=== PATIENT | female | born 1990 | race Caucasian/White ===

== ENCOUNTER 2017-10-10 13:48 | Emergency (ER) | payer SELFPAY ==
[2017-10-10 16:08] LABS: Bilirubin Negative (Negative); Blood, Urine Negative (Negative); Clarity CLOUDY (Clear); Glucose, Urine (Dipstick) Negative (Negative); Leukocyte Small (Negative); Nitrite Negative (Negative); Protein, Urine (Dipstick) Trace mg/dL (Neg-Trace); Specific Gravity, Urine 1.031 (1.002-1.036)
[2017-10-10 16:11] LABS: Pregnancy Test - Urine (BHCG) POSITIVE (Negative); Pregu Control Background? CLEAR/WHITE (CLR/WHITE); Pregu Control Bar Appear? YES (CONTROL BAR); Specific Gravity 1.031 (1.002-1.036)
[2017-10-10 16:25] LABS: Bacteria/HPF 3+ HPF (None Seen); Hyaline Casts/LPF NONE SEEN LPF (0-3 Hyaline); RBC/HPF 0-3 HPF (0-3); Squamous Epithelial 0-3 HPF (0-3)
[2017-10-10 16:34] LABS: #Eosinphils 0.1 thou/uL (0.0-0.7); #Lymphocytes 1.8 thou/uL (1.20-3.40); #Monocytes 0.5 thou/uL (0.11-0.59); #Neutrophils 8.1 thou/uL (1.40-6.50); %Basophils 0.3 % (0.0-1.0); %Eosinophils 0.6 % (0.0-10.0); %Monocytes 5.1 % (0.0-10.0); %Neutrophils 77.1 % (42.0-75.0); Hemoglobin 11.9 g/dL (12.0-16.0); Mean Corpuscular HGB CONC 32.8 g/dL (32.0-36.0); Mean Corpuscular Hemoglobin 28.6 pg (27.0-31.0); Mean Corpuscular Volume 87.3 fl (81.0-99.0); Mean Platelet Volume 8.1 fL (7.4-10.4); Platelet Count 292 thou/uL (130-400); Red Blood Cell (RBC) Count 4.15 mill/uL (4.20-5.40); White Blood Cell (WBC) Count 10.5 thou/uL (4.8-10.8)
[2017-10-10 16:50] LABS: ALT (SGPT) 9 U/L (8-55); AST (SGOT) 12 U/L (5-34); Albumin 3.7 g/dL (3.5-5.0); Alkaline Phosphatase 73 U/L (40-150); Anion Gap 15 mmol/L (10-20); BUN (Urea Nitrogen) 5 mg/dL (7.0-18.7); Bilirubin, Total 0.8 mg/dL (0.2-1.2); Calc. Creatinine Clearance 0 mL/min (70-130); Calcium 8.6 mg/dL (7.8-10.44); Carbon Dioxide 20 mmol/L (22-29); Chloride 108 mmol/L (98-107); Estimated GFR-MDRD Greater than 90; Globulin 3.1 g/dL (2.4-3.5); Glucose 70 mg/dL (70-105); Potassium 3.7 mmol/L (3.5-5.1); Protein, Total 6.8 g/dL (6.0-8.3); Sodium 139 mmol/L (136-145)
== END 2017-10-10 17:00 | disposition home or self-care (01) ==
LOC: EDBD 13:48 → ERS 13:48
DX: O23.40 Unspecified infection of urinary tract in pregnancy, unspecified trimester (principal); O99.340 Other mental disorders complicating pregnancy, unspecified trimester; F41.9 Anxiety disorder, unspecified
CPT/HCPCS: 36415; 80053; 81003; 81015; 81025; 85025; 87086; 99283

== ENCOUNTER 2018-01-14 10:47 | Observation (INO) | payer OTHER, SELFPAY ==
[2018-01-14] MEDS ORDERED: Dextrose 50% Abboject 50 ML SYRINGE IVP PRN (11:26)
[2018-01-14] MEDS ORDERED: HumaLOG 300 UNITS/3 ML VIAL SC PRN (11:26)
[2018-01-14] MEDS ORDERED: Dextrose 5% in Water 1,000 ML IV PRN (11:26)
[2018-01-14 12:15] LABS: ALT (SGPT) 37 U/L (8-55); AST (SGOT) 19 U/L (5-34); Albumin 3.4 g/dL (3.5-5.0); Alkaline Phosphatase 161 U/L (40-150); Anion Gap 10 mmol/L (10-20); BUN (Urea Nitrogen) 8 mg/dL (7.0-18.7); Bilirubin, Total 0.8 mg/dL (0.2-1.2); Calc. Creatinine Clearance 0 mL/min (70-130); Calcium 8.3 mg/dL (7.8-10.44); Carbon Dioxide 21 mmol/L (22-29); Chloride 109 mmol/L (98-107); Estimated GFR-MDRD Greater than 90; Globulin 3.1 g/dL (2.4-3.5); Glucose 63 mg/dL (70-105); Potassium 3.8 mmol/L (3.5-5.1); Protein, Total 6.5 g/dL (6.0-8.3); Sodium 136 mmol/L (136-145)
[2018-01-14 13:30] VITALS: BMI 35.7
--- NOTE | 2018-01-14 13:47 | PDOC.FPRHP ---
- History of Present Illness Chief Complaint: Uncontrolled gestational diabetes History of Present Illness: 27F, , late to care, presents for uncontrolled gestational diabetes on three hour glucose check, 241. 243, 153. She has been noncompliant with metformin. She has not measured her blood glucose at home. Her fundal height measures at 37 cm and she has not been in for growth US or scheduled BPP/ NST. Today, she denies dizziness, diaphoresis, vision change, sweats or nervousness. - Allergies/Adverse Reactions Allergies Allergy/AdvReac Type Severity Reaction Status Date / Time No Known Allergies Allergy Verified 01/14/18 11:29 - Home Medications Medication Instructions Recorded Confirmed Type Pnv No.95/Ferrous Fum/Folic AC 1 each PO DAILY 01/14/18 01/14/18 History [ Vitamin Tablet] glyBURIDE [Micronase] 2.5 mg PO BID 01/14/18 01/14/18 History - History PMHx:GDM in 2nd PSHx: C/2 x2 FHx: Denies heart disease, DM, cancer Social: Partner smokes outside, denies alcohol, drug use - Review of Systems General: denies: weight/appetite/sleep changes Eyes: denies: vision changes ENT: denies: nasal congestion Respiratory: denies: cough, congestion Cardiovascular: denies: chest pain, palpitation Gastrointestinal: denies: nausea, vomiting, diarrhea Genitourinary: denies: dysuria Musculoskeletal: denies: pain, tenderness Neurological: denies: syncope, weakness Psychological: denies: anxiety, depression - Vital signs BP: [] HR: [] RR: [] Tmax: [] Pox: []% on [] Wt: [] - Physical Exam Constitutional: NAD, awake, alert and oriented, well developed HEENT: normocephalic and atraumatic, grossly normal hearing Neck: trachea midline Heart: RRR, normal S1/S2, no murmurs/rubs/gallops Lungs: CTAB, no respiratory distress Abdomen: soft, non-tender -Abdomen: Gravid Neurological: no focal deficit Skin: no rash/lesions Heme/Lymphatic: no unusual bruising or bleeding Psychiatric: normal mood and affect FMR H&P: Results - Labs Result Diagrams: 01/14/18 11:42 Lab results: Sodium 136 mmol/L (136-145) 01/14/18 11:42 Potassium 3.8 mmol/L (3.5-5.1) 01/14/18 11:42 Chloride 109 mmol/L (98-107) H 01/14/18 11:42 Carbon Dioxide 21 mmol/L (22-29) L 01/14/18 11:42 BUN 8 mg/dL (7.0-18.7) 01/14/18 11:42 Creatinine 0.61 mg/dL (0.6-1.1) 01/14/18 11:42 Glucose 63 mg/dL (70-105) L 01/14/18 11:42 Calcium 8.3 mg/dL (7.8-10.44) 01/14/18 11:42 Total Bilirubin 0.8 mg/dL (0.2-1.2) 01/14/18 11:42 AST 19 U/L (5-34) 01/14/18 11:42 ALT 37 U/L (8-55) 01/14/18 11:42 Alkaline Phosphatase 161 U/L (40-150) H 01/14/18 11:42 Serum Total Protein 6.5 g/dL (6.0-8.3) 01/14/18 11:42 Albumin 3.4 g/dL (3.5-5.0) L 01/14/18 11:42 FMR H&P: A/P - Problem List (1) Gestational diabetes Current Visit: Yes Status: Chronic Code(s): O24.419 - GESTATIONAL DIABETES MELLITUS IN , UNSP CONTROL Qualifiers: Gestational diabetes mellitus control: oral hypoglycemic-controlled Trimester: third trimester Qualified Code(s): O24.415 - Gestational diabetes mellitus in , controlled by oral hypoglycemic drugs Assessment and Plan: Noncomplaint with treatment and patient has not had anatomy or BPP/NST screening. Plan, start with glyburide prior to next meal. Patient mildly hypoglycemic at 63 , but not symptomatic at this time. Nutrition consult to educate patient on diet. Will have mild sliding scale and hypoglycemic protocol in place. Monitor glucose overnight, likely dc tomorrow if stable on glyburide regimen For baby, will have anatomy US to assess growth. Will obtain BPP/NST to assess wellbeing. - Plan Disposition/LOS: 2 days or less FMR H&P: Upper Level - Plan Date/Time: 01/14/18 1333 I, [], have evaluated this patient and agree with findings/plan as outlined by leadership program internship resident. Pertinent changes/additions are listed here. Attending Addendum - Attending Addendum Date/Time: 01/14/18 1640 I personally evaluated the patient and discussed the management with Drs. Hernandez and I agree with the History, Examination, Assessment and Plan documented above with any addition or exceptions noted below. Reviewed vitals which are normal. High risk patient due to uncontrolled GDM, who has been non-compliant with care at 35 weeks by unsure LMP and 3rd trimester ultrasound. Admitted for obs for glucose control, well-being evaluation. BPP and ultrasound report pending. Initial glucose at admission was normal.
--- NOTE | 2018-01-14 16:40 | ULT ---
OBSTETRIC SONOGRAM COMPLETE SONOGRAPHIC BIOPHYSICAL PROFILE EXAM 01/14/18 HISTORY: Third trimester . evaluation. FINDINGS: Multiple transabdominal sonographic views of the gravid uterus show a single intrauterine gestation i n cephalic presentation. Ossification of the cranium, predominantly obscures the uterine cervix. No g ross intracranial abnormalities are apparent. Four chamber heart shows motion at 147 beats per minute . spine and kidneys are intact as visualized. Umbilical cord shows a normal insertion. Advanced age limits anatomic detail. Grade I placenta is anterior. Amniotic fluid index 19.5. Measurements are as follows: Biparietal diameter 36 weeks, 2 days Head circumference 36 weeks, 3 days Abdominal circumference 35 weeks, 5 days Femur length 37 weeks, 3 days Estimated date of delivery based on today's sonogram is 02/07/18. Hadlock percentile 95%. Estimated fe fan weight 2902 grams (6 lb. 6 oz.). Good tone and gross movements were demonstrated. Breathing movements were not reliably visualiz ed. Amniotic fluid is within normal limits. IMPRESSION: Single viable intrauterine gestation with estimated gestational age based on today's sonogram of 36 w eeks, 4 days. Sonographic biophysical profile score 6/8. POS: [facility]
[2018-01-14] MEDS ORDERED: glyBURIDE 2.5 MG TAB PO SCH (18:00)
--- NOTE | 2018-01-14 21:01 | PDOC.EVN ---
Event Note - Event Note Event Note: On completion of NST the strip was read as follows: Baseline heart rate of 120bpm, accells positive, no decells, moderate variability, overall impression is an un-concerning NST.
--- NOTE | 2018-01-15 07:04 | PDOC.FM ---
- Subjective Subjective: No acute events overnight. Denies nausea, blurry vision, diarrhea. Endorses FM, denies LOF, VB. Reports mild contractions. - Objective MAR Reviewed: Yes Vital Signs & Weight: Vital Signs (12 hours) Temp Pulse Resp BP Pulse Ox 01/15/18 00:32 98.2 F 78 18 110/57 L 98 01/14/18 19:53 98.2 F 77 18 117/56 L 97 01/14/18 19:39 98.2 F 77 18 Weight Weight 91.626 kg I&O: 01/14/18 01/15/18 01/16/18 06:59 06:59 06:59 Intake Total 480 Balance 480 Result Diagrams: 01/14/18 11:42 <Christel Blue - Last Filed: 01/15/18 07:01> - Objective Vital Signs & Weight: Vital Signs (12 hours) Temp Pulse Resp BP BP Pulse Ox 01/15/18 08:51 98.2 F 87 20 116/76 99 01/15/18 00:32 98.2 F 78 18 110/57 L 98 Weight Weight 91.626 kg I&O: 01/14/18 01/15/18 01/16/18 06:59 06:59 06:59 Intake Total 480 Balance 480 Result Diagrams: 01/14/18 11:42 <Anibal Catherine - Last Filed: 01/15/18 12:14> Phys Exam - Physical Examination Constitutional: NAD HEENT: moist MMs Respiratory: no wheezing, no rales, clear to auscultation bilateral Cardiovascular: RRR, no significant murmur gravid, non TTP Musculoskeletal: pulses present Neurological: non-focal, moves all 4 limbs Psychiatric: normal affect, A&O x 3 Skin: no rash, normal turgor, cap refill <2 seconds <Christel Blue - Last Filed: 01/15/18 07:01> Dx/Plan (1) in multigravida Code(s): Z34.80 - ENCOUNTER FOR SUPRVSN OF NORMAL , UNSP TRIMESTER Status: Acute (2) Gestational diabetes Code(s): O24.419 - GESTATIONAL DIABETES MELLITUS IN , UNSP CONTROL Status: Chronic Qualifiers: Gestational diabetes mellitus control: oral hypoglycemic-controlled Trimester: third trimester Qualified Code(s): O24.415 - Gestational diabetes mellitus in , controlled by oral hypoglycemic drugs - Plan Plan: @ 35.3, late to PNC, hx of GDMA2, directly admitted for uncontrolled GDMA2 due to non-compliance GDMA2 -Given glyburide 2.5 mg x1 before dinner -Accuchecks have been appropriate -Patient is clinically stable -Received diabetic edu. Has glucose monitor at home and understands how to use it. -BPP 12/13, NST reassuring/non-concerning -Repeat NST in AM Dispo: If NST is reassuring and FBG WNL, plan for discharge this afternoon with rx for glyburide qAM and continuation of regular care visits <Christel Blue - Last Filed: 01/15/18 07:01> (1) Gestational diabetes Code(s): O24.419 - GESTATIONAL DIABETES MELLITUS IN , UNSP CONTROL Status: Chronic Qualifiers: Gestational diabetes mellitus control: oral hypoglycemic-controlled Trimester: third trimester Qualified Code(s): O24.415 - Gestational diabetes mellitus in , controlled by oral hypoglycemic drugs <Anibal Catherine - Last Filed: 01/15/18 12:14> Attending Addendum - Attending Addendum Date/Time: 01/15/18 1214 I personally evaluated the patient and discussed the management with Dr. Blue. I agree with the History, Examination, Assessment and Plan documented above with any addition or exceptions noted below. <Anibal Catherine - Last Filed: 01/15/18 12:14>
[2018-01-15] MEDS ORDERED: glyBURIDE 2.5 MG TAB PO SCH (07:30)
[2018-01-15] MEDS ORDERED: Prenatal Vitamin 1 TAB PO SCH (09:00)
[2018-01-15 12:41] VITALS: BP 122/69; TEMP 98.3
--- NOTE | 2018-01-16 05:27 | DIS ---
DATE OF ADMISSION: 01/14/2018 DATE OF DISCHARGE: 01/15/2018 RESIDENT: Christel Blue MD, PGY-1. ADMITTING ATTENDING: Anibal Catherine M.D. DISCHARGE ATTENDING: Anibal Catherine M.D. CONSULTATIONS: None. PROCEDURES: None. admitting DIAGNOSES: 1. Gestational diabetes mellitus A2, uncontrolled. 2. Third trimester . 3. Late to OB care 4. Noncompliance Discharge Diagnosis: 1. Gestational Diabetes A2, controlled 2. Third trimester . 3. Late to OB care 4. Noncompliance DISCHARGE MEDICATIONS: 1. Glyburide 2.5 mg p.o. q.a.m. 2. vitamins. HISTORY OF PRESENT ILLNESS AND HOSPITAL COURSE: This is a 27-year-old G2, P2002 at 35.2, late to care, presents as a direct admit from clinic due to concern for well-being from uncontrolled GDM A2. Patient has been noncompliant with glucose checks and metformin regimen at home due to social stressors. In hospital, initial glucose was 67. Repeat glucose was within normal limits. well-being was assessed with BPP, which was 8/10, 2 points off for breathing. NST was reactive. Patient was started on glyburide 2.5 mg p.o. daily. The patient's following glucose checks were within appropriate range with no hypoglycemic episodes. Repeated NST the day of discharge was reactive. Patient received diabetic education and stated she has home medication and glucometer with glucose strips at home to utilize. DISPOSITION: Stable. DISCHARGE INSTRUCTIONS: 1. Location: Home. 2. Diet: Regular diet. 3. Activity: As tolerated. 4. Followup: [facility] for continued routine care in addition to antepartum surveillance as indicated for GDM A2. TEDDY
== END 2018-01-15 13:45 | disposition home or self-care (01) ==
LOC: 3SE 10:47
PROVIDERS: ADMIT Family Medicine; ATTEND Family Medicine
DX: O24.415 Gestational diabetes mellitus in pregnancy, controlled by oral hypoglycemic drugs (principal); Z3A.35 35 weeks gestation of pregnancy; Z79.84 Long term (current) use of oral hypoglycemic drugs; Z79.899 Other long term (current) drug therapy; Z91.14 Patient's other noncompliance with medication regimen
CPT/HCPCS: 36415; 36416; 59025; 76805; 76819; 80053; G0378

== ENCOUNTER 2018-01-23 09:50 | Inpatient (IN) | payer OTHER ==
--- NOTE | 2018-01-23 07:16 | PDOC.LDHP ---
Labor and Delivery H&P Chief complaint: scheduled section HPI: 27 y/o @ 37w5d by 29w3d US presents for a scheduled section due to uncontrolled A2GDM. The patient was late to care, presenting in her 3rd trimester. She was found to have GDM and initially started on metformin , but was non-compliant with this due to GI side effects. She was switched to Glyburide last week. She tolerated the glyburide better, but has still had uncontrolled glucose checks. Patient still desires risk reducing salpingectomy. The patient reports movement, reports intermittent contractions mostly at night. Denies vaginal bleeding, vaginal d/c, LOF, dysuria, swelling, headaches, vision changes, RUQ pain. PCP: Dr. Moreira @ [facility] Current gestational age (weeks): 37 (37w5) Due date: 02/08/18 Dating criteria: other (3rd trimester US) Grav: 3 Para: 2 OB History Details: 1. Term pLTCS 2. Term rLTCS Current complications: gestational diabetes Abnormal US findings: Yes (macrosomia - EFW 4540g) Past Medical History: None Current medications: pre- vitamins, other (Glyburide) Previous surgical history: low tranverse CS (x2) Social history: none - Physical Exam Vital signs reviewed and normal: yes General: NAD Heart: RRR Lungs: CTAB Abdomen: gravid Extremeties: no edema FHT: category 1, variability present - OB Labs Blood type: A RH: positive Antibody Screen: negative HIV: negative RPR: negative HEPSAg: negative 1 hour GCT: positive 3 hour GTT: positive GBS: unknown Rubella: immune - Assessment L&D Assessment: scheduled repeat section Repeat LTCS for uncontrolled gestational diabetes - Plan Plan: admit to L&D, to OR for section, informed consent obtained, anesthesia consult for pain management -: -NPO -Spinal for anesthesia -Ancef 2g prior to -Patient still desires risk reducing salpingectomy Risks and benefits of section with risk reducing salpingectomy were discussed with the patient, including but not limited to: bleeding, infection, pain, need for blood transfusion, having to use the vacuum to deliver the , need for a hysterectomy, . <Kimberly Lyn - Last Filed: 01/23/18 11:22> <Erin Hollis - Last Filed: 01/23/18 14:57> Allergies/Adverse Reactions: Allergies Allergy/AdvReac Type Severity Reaction Status Date / Time No Known Allergies Allergy Verified 01/23/18 10:57 Attending Addendum - Attending Addendum Date/Time: 01/23/18 1450 I personally evaluated the patient and discussed the management with Dr. Lyn I agree with the History, Examination, Assessment and Plan documented above with any addition or exceptions noted below. 27 y/o @ 37w5d by 29w3d US presenting for scheduled repeat section for uncontrolled A2GDM Pt desires ovarian cancer risk reduction via bilateral salpingectomy. She has verbalized understanding that a consequence of this procedure is sterilization. R/B/A of delivery were discussed at length. <Erin Hollis - Last Filed: 01/23/18 14:57>
[~2018-01-23 09:50] MED LIST: Bicitra 30 ML UDCUP PO SCH; CEFAZOLIN/Water 2 GM/20 ML SYRINGE SLOW IVP SCH; Ondansetron HCl/PF 4 MG/2 ML Vial IVP PRN; Promethazine HCl 25 MG/ML VIAL IM PRN
[2018-01-23] MEDS: Lactated Ringer's 1,000 ML IV SCH ×2 (10:15→20:22)
[2018-01-23] MEDS ORDERED: PROPOFOL 200 MG/20 ML VIAL ONE (10:35)
[2018-01-23] MEDS ORDERED: ePHEDrine/0.9% NaCl/PF SYRINGE 50 mg/10 ml ONE ×2 (10:35→12:17)
[2018-01-23 10:38] VITALS: BMI 36.1
[2018-01-23 10:40] LABS: Hemoglobin 10.9 g/dL (12.0-16.0); Mean Corpuscular HGB CONC 31.4 g/dL (32.0-36.0); Mean Corpuscular Hemoglobin 25.3 pg (27.0-31.0); Mean Corpuscular Volume 80.5 fL (78.0-98.0); Mean Platelet Volume 9.8 fL (7.4-10.4); Platelet Count 249 thou/uL (130-400); RBC Distribution Width 15.7 % (11.5-14.5); Red Blood Cell (RBC) Count 4.31 mill/uL (4.20-5.40); White Blood Cell (WBC) Count 8.5 thou/uL (4.8-10.8)
[2018-01-23 11:19] LABS: HBSAg Index 0.23 S/CO (0-0.99); Hep B Surf Ag Non-Reactive S/CO (NonReactive); Syphilis Antibody Nonreactive (Nonreactive); Syphilis Antibody Index 0.03 S/CO (<1.00 Non-Reactive)
[2018-01-23] MEDS ORDERED: diphenhydrAMINE 50 MG/ML VIAL IVP PRN (11:45)
[2018-01-23] MEDS ORDERED: Promethazine HCl 25 MG/ML VIAL IM PRN (11:45)
[2018-01-23] MEDS ORDERED: Ondansetron HCl/PF 4 MG/2 ML Vial IVP PRN ×2 (11:45)
[2018-01-23] MEDS ORDERED: Naloxone HCl 0.4 mg/ml Vial IVP PRN ×2 (11:45)
[2018-01-23] MEDS ORDERED: Meperidine HCl/PF 25 MG/ML VIAL SLOW IVP PRN (11:45)
[2018-01-23] MEDS ORDERED: Eucerin (Mineral Oil/Petrolatum,White) 30 gm Jar TOP PRN (11:45)
[2018-01-23] MEDS ORDERED: HYDROmorphone 2 MG/ML VIAL SLOW IVP PRN (11:45)
[2018-01-23] MEDS ORDERED: Communication Order-Pharmacy FS SCH (11:45)
[2018-01-23] MEDS ORDERED: Ketorolac Tromethamine 30 MG/ML VIAL IVP PRN (11:45)
[2018-01-23] MEDS ORDERED: Ketorolac Tromethamine 30 MG/ML VIAL IVP SCH (11:45)
[2018-01-23] MEDS ORDERED: Naloxone HCl 0.4 mg/ml Vial IV PRN (11:45)
[2018-01-23] MEDS ORDERED: Oxytocin 10 UNITS/ML VIAL ONE ×2 (12:17→13:45)
[2018-01-23] MEDS ORDERED: Lidocaine 1% PF 5 ML VIAL ONE (12:17)
[2018-01-23] MEDS ORDERED: Morphine PF 1 MG/ML SYR ONE (12:17)
[2018-01-23] MEDS ORDERED: Bupivacaine 0.75% W/DEXTROSE 8.25% 2 ML AMP ONE (12:17)
[2018-01-23] MEDS ORDERED: Fentanyl 250 MCG/5 ML VIAL ONE (12:49)
[2018-01-23] MEDS ORDERED: Ketamine 50 MG/ML VIAL ONE (12:54)
[2018-01-23] MEDS ORDERED: Midazolam HCl 2 mg/2 ml Vial ONE ×2 (12:57→13:38)
[2018-01-23 13:24] LABS: Amphetamine Not Detected (NotDetected); Barbiturates Screen Not Detected (NotDetected); Benzodiazepine Screen Not Detected (NotDetected); Cocaine Metabolite Screen Not Detected (NotDetected); Medtox Control Line Valid? VALID (VALID); Medtox Reader # READER 1; Methadone Not Detected (NotDetected); Methamphetamine Not Detected (NotDetected); Opiate Screen Not Detected (NotDetected); Oxycodone Screen Not Detected (NotDetected); Phencyclidine (PCP) Not Detected (NotDetected); THC/Cannabinoid Screen Not Detected (NotDetected); Tricyclic Screen Not Detected (NotDetected)
[2018-01-23] MEDS ORDERED: Fentanyl 100 MCG/2 ML VIAL ONE (14:06)
--- NOTE | 2018-01-23 14:35 | CON ---
DATE OF CONSULTATION: 01/23/2018 OB SURGICAL CONSULTATION ATTENDING PHYSICIAN: Erin Hollis D.O. CONSULTING PHYSICIAN: Bi Bhardwaj M.D. SURGICAL CONSULTATION: This patient is a 27-year-old white female with 2 previous sections who has been admitted by Dr. Hollis and the [facility] for repeat section at term and is desirous of a risk reducing salpingectomy at the time of her surgery. I was asked to help Dr. Hollis and the residents. Upon my arrival to the operating room, the team was having difficulty entering her peritoneal cavity. The peritoneum was identified. The peritoneum was opened sharply. Exploration of the abdominal cavity showed that there were multiple omental adhesions across the anterior uterus. These were divided using the Bovie. The rectus muscles were then further divided inferiorly and the lower uterine segment was exposed. A transverse incision was made over the lower uterine segment and the uterine cavity was then entered. Clear fluid was noted and the fetus was delivered from the cephalic presentation. Cord was clamped and cut and the placenta was manually removed. The inside of the uterus was curetted with a dry lap and all remaining placental fragments were removed. Closure of the uterine incision was begun using a running locking suture of #1 Monocryl. Once the uterus was hemostatic, attention was then turned to the tubes. Each tube was identified. The mesosalpinx was serially clamped, excised and suture ligated using chromic suture. Both sides were treated in this fashion. Good hemostasis was noted across the mesosalpinx on each side. The uterus was then replaced into the abdominal cavity after one small serosal defect was closed using a running locking suture of Monocryl. The abdomen was thoroughly irrigated. The lower uterine incision was again reviewed and was noted to be adequately hemostatic. The case was then turned back over to Dr. Hollis and the residents for completion of the case. TEDDY
--- NOTE | 2018-01-23 14:37 | PDOC.OPDEL ---
OB Operative/Delivery Note Delivery Dr/Surgeon: Dr. Kimberly Lyn, Dr. Jeannette Esquivel, Attending: Dr. Erin Hollis, Dr. Bhardwaj Pre-Delivery Diagnosis: scheduled section Procedure/Post Delivery Dx: repeat low transverse CS (with risk reducing salpingectomy) Weeks gestation: 37 (37w5d) Anesthesia: spinal - Findings A Sex: male - 1 min: 8 - 5 min: 9 - Additional Findings/Plan Placenta delivered: manual removal findings: low transverse hysterotomy without extension, normal tubes, normal ovaries Compilations/Other Findings: Preoperative Diagnosis: 1)Term intrauterine 2)Previous x2 3)Uncontrolled A2GDM 4)Desires permanent sterilization Postoperative Diagnosis: 1)Term intrauterine 2)Previous x2 3)Uncontrolled A2GDM 4)Desires permanent sterilization 5)Severe intra-abdominal adhesions Anesthesia: spinal Indications: The patient is a 27 year old female at 37 5/7 weeks gestation who presents for a repeat scheduled . Procedure in Detail: After risks, benefits, and alternatives were explained to the patient, she gave informed consent. Pre-operative antibiotics included Cefazolin 2 gram IV. The patient was taken to the operating room and spinal anesthesia was initiated. She was placed in the supine position with a left tilt and prepped and draped in usual sterile fashion. A Pfannenstiel incision was made with a scalpel and carried down to the level of the fascia which was sharply nicked. The fascial cut was extended bilaterally with Gonzalez scissors. The inferior and superior edges of the cut fascial edges were elevated with Teo clamps and the underlying rectus muscles were sharply and bluntly dissected free using gonzalez scissors and bovie. Dense adhesions were noted between the anterior rectus and the fascia. The recti were divided sharply using gonzalez scissors and retracted manually. Dr. Bhardwaj scrubbed in at this point to help take down the adhesions. The peritoneum was entered bluntly and retracted manually. Intra-abdominal adhesions were taken down using the bovie. Bladder blade was placed. A low transverse score was made with the scalpel and the uterus was entered in the midline bluntly. Clear fluid was seen. The hysterotomy was extended manually. The was noted to be vertex and was easily delivered by fundal pressure. Mouth and nares were bulb suctioned. Cord clamped and cut and grossly normal male was handed to waiting nurse. Cord blood was obtained. Placenta was manually extracted, found to be intact with 3 vessel cord and discarded. The uterus was externalized and the endometrium was curetted with a dry lap. The bladder blade was replaced and the uterus was closed with a running locking 1-0 monocryl followed by figure of eight sutures with 2-0 monocryl. There was a myometrial tear noted from the dissection of thick uterine adhesions that was repaired using running locking 2- 0 chromic suture. Following this hemostasis was noted. A bilateral risk reducing salpingectomy was performed by Dr. Bhardwaj in the usual fashion with good hemostasis noted. See separate operative note for full details. The uterus was internalized and the hysterotomy was again noted to be hemostatic. The abdomen was irrigated with saline and suctioned free of clots. The rectus was examined for bleeding and the areas that were found to be oozing were cauterized with bovie. The fascia was closed with a running non-locking 0- Vicryl suture. The subcutaneous tissue was irrigated and bleeders were cauterized with the bovie. The subcutaneous tissue was approximated with 3 simple interrupted sutures with 2-0 plaingut. The skin was approximated with cale and a pressure dressing was placed. All counts were correct. The patient tolerated the procedure well and was taken to the recovery room in stable condition. Quantitative Blood Loss: 1855 ml Complications: None Specimens: Cord blood sent to lab for blood type, bilateral fallopian tubes Findings: Grossly normal male with apgars of 8 and 9 at 1 and 5 minutes respectively. Grossly normal placenta with 3 vessel cord discarded. Drains: Campos to gravity draining clear urine <Kimberly Lyn - Last Filed: 01/23/18 15:24> Attending Addendum - Attending Addendum Date/Time: 01/24/1824 I was present for and assisted in the entire section with doctors Riki Bhardwaj and Camila. I agree with the above documented findings. <Erin Hollis - Last Filed: 01/24/18 08:25>
[2018-01-23 15:01] LABS: PTT 23.8 SEC (22.9-36.1)
[2018-01-23] MEDS ORDERED: Lanolin Ointment 7 GM TUBE TOP PRN (17:34)
[2018-01-23] MEDS ORDERED: Adacel (T-DAP) 0.5 ML VIAL IM ONE (17:34)
--- NOTE | 2018-01-23 19:55 | PDOC.EVN ---
Event Note - Event Note Event Note: S: 27 year old now 3 female s/p repeat scheduled at 37 5/7 weeks gestation is post op 4 hours and doing well. No complaints at this time. Reports good pain control, minimal bleeding, no SOB, fevers/chills, headache. Pt is resting comfortably O: Vitals BP 102/51, HR 77, RR 12, satting well on RA. ABD: Utering fundus is firm and 2cm below umblicus CARD: RRR, no murmur PULM: CTAB, no resp distress A/P: -pt recovering as expected -H/H pending -monotor vitals
[2018-01-23] MEDS: CEFAZOLIN 1 GM in Sodium Chloride 0.9% 100 ML IVPB SCH (20:21)
[2018-01-23 22:04] LABS: Hemoglobin 9.4 g/dL (12.0-16.0); Mean Corpuscular HGB CONC 31.6 g/dL (32.0-36.0); Mean Corpuscular Hemoglobin 25.9 pg (27.0-31.0); Mean Platelet Volume 9.5 fL (7.4-10.4); Platelet Count 232 thou/uL (130-400); RBC Distribution Width 15.5 % (11.5-14.5); Red Blood Cell (RBC) Count 3.62 mill/uL (4.20-5.40); White Blood Cell (WBC) Count 14.2 thou/uL (4.8-10.8)
[2018-01-24] MEDS: Docusate Calcium (SURFAK) 240 MG CAP PO SCH ×3 (02:17→20:58)
[2018-01-24] MEDS: CEFAZOLIN 1 GM in Sodium Chloride 0.9% 100 ML IVPB SCH ×3 (04:37→21:01)
[2018-01-24 06:02] LABS: Hemoglobin 7.9 g/dL (12.0-16.0); Mean Corpuscular HGB CONC 30.8 g/dL (32.0-36.0); Mean Corpuscular Hemoglobin 25.2 pg (27.0-31.0); Mean Corpuscular Volume 81.8 fL (78.0-98.0); Mean Platelet Volume 9.8 fL (7.4-10.4); Platelet Count 220 thou/uL (130-400); RBC Distribution Width 15.4 % (11.5-14.5); Red Blood Cell (RBC) Count 3.14 mill/uL (4.20-5.40); White Blood Cell (WBC) Count 10.5 thou/uL (4.8-10.8)
--- NOTE | 2018-01-24 06:39 | PDOC.PP ---
Post Progress Note Post Day #: 1 Subjective: Reports pain at surgical site. Has not received norco yet. Endorses good po tolerance of solid foods yesterday. No issues voiding, able to pass gas. Pending BM. Also reports dizziness with ambulation. Denies palpitations, chest pain, SOB. Vital Signs (12 hours) Temp Pulse Resp BP 01/24/18 04:00 97.4 F L 92 18 113/50 L 01/24/18 02:00 82 18 103/54 L 01/24/18 00:58 20 01/24/18 00:00 97.9 F 95 20 110/52 L 01/23/18 21:35 88 18 95/52 L 01/23/18 19:35 98.2 F 84 20 108/51 L Weight Weight 92.533 kg - Physical Examination General: NAD Cardiovascular: RRR Respiratory: clear to auscultation bilaterally Abdominal: appropriately TTP Extremities: negative homans (B) Skin: CS incision dry & intact Psychiatric: A&Ox3, normal affect Result Diagrams: 01/24/18 05:41 Additional Labs: Post Labs Blood Type A POSITIVE 01/23/18 10:20 Hep Bs Antigen Non-Reactive S/CO (NonReactive) 01/23/18 10:20 (1) delivery due to maternal disorder Code(s): [id number] - Status: Acute (2) in multigravida Code(s): Z34.80 - ENCOUNTER FOR SUPRVSN OF NORMAL , UNSP TRIMESTER Status: Acute (3) Gestational diabetes Code(s): O24.419 - GESTATIONAL DIABETES MELLITUS IN , UNSP CONTROL Status: Chronic Qualifiers: Gestational diabetes mellitus control: oral hypoglycemic-controlled Trimester: third trimester Qualified Code(s): O24.415 - Gestational diabetes mellitus in , controlled by oral hypoglycemic drugs (4) Anemia Code(s): D64.9 - ANEMIA, UNSPECIFIED Status: Acute - Assessment/Plan s/p rLTCS indicated for GDMA2 s/p rLTCS, POD 1 -Today, Hb 7, symptomatic, will transfuse PRBC x2, 6hr H/H -discussed risks of with patient including: fever, infection, hemolysis. answered questions -ambulating, tolerating RD, flatus; pending BM -pain control with ibuprofen scheduled and norco for breakthrough pain Symptomatic anemia -see plan above -continue oral iron GDMA2 -no mgmt at this time, will advise for DM screen in 4-6 weeks dispo: continue normal care. reassess after transfusion. <Christel Blue - Last Filed: 01/24/18 14:57> Vital Signs (12 hours) Temp Pulse Resp BP 01/24/18 12:26 99.0 F 102 H 20 109/57 L 01/24/18 11:49 98 20 102/47 L 01/24/18 08:05 98.4 F 83 20 106/45 L 01/24/18 04:00 97.4 F L 92 18 113/50 L Weight Weight 92.533 kg Result Diagrams: 01/24/18 05:41 Additional Labs: Post Labs Blood Type A POSITIVE 01/23/18 10:20 Hep Bs Antigen Non-Reactive S/CO (NonReactive) 01/23/18 10:20 <Erin Hollis - Last Filed: 01/24/18 15:37> Attending Addendum - Attending Addendum Date/Time: 01/24/18 9767 I personally evaluated the patient and discussed the management with Dr. Blue I agree with the History, Examination, Assessment and Plan documented above with any addition or exceptions noted below. Pt reports feeling well. Denies dizziness at rest or with ambulation, SOB, chest pain. Lochia is mild Voiding and passing flatus. 1. Postoperative day #1 -Meeting appropriate postoperative milestones -Continue routine care -Urine output has been adequate -Anticipate d/c to home on POD #3 2. Acute blood loss anemia -Recommend blood transfusion -Pt counseled on R/B/A to transfusion and she declined. She verbalized understanding of risks of refusal -Will give iron transfusion which patient is agreeable to 3. A2GDM -Will need GTT at 6 week visit <Erin Hollis - Last Filed: 01/24/18 15:37>
[2018-01-24] MEDS: HYDROcodone/Acetaminophen 5/325 mg Tablet PO PRN ×3 (07:19→18:04)
[2018-01-24] MEDS: Lactated Ringer's 1,000 ML IV SCH ×4 (09:04→21:49)
[2018-01-24] MEDS: Ferrous Sulfate 325 MG TAB PO SCH ×2 (09:38→18:03)
[2018-01-24] MEDS: Prenatal Vitamin 1 TAB PO SCH (09:38)
[2018-01-24] MEDS: Simethicone Chewable 80 MG TAB PO PRN ×3 (09:39→20:58)
[2018-01-24] MEDS: Ibuprofen 800 MG TAB PO SCH ×2 (13:43→20:58)
[2018-01-24] MEDS ORDERED: Iron Sucrose Complex 500 MG in Sodium Chloride 0.9% 250 ML 250 ML IVPB SCH (15:00)
[2018-01-24] MEDS ORDERED: Acetaminophen 500 MG TAB PO SCH (15:00)
[2018-01-25] MEDS: CEFAZOLIN 1 GM in Sodium Chloride 0.9% 100 ML IVPB SCH (05:02)
[2018-01-25] MEDS: Ibuprofen 800 MG TAB PO SCH ×3 (05:03→21:49)
--- NOTE | 2018-01-25 08:21 | PDOC.PP ---
Post Progress Note Post Day #: 2 Subjective: Pt reports doing well overnight, ambulating without dizziness. She is describing a head fulliness when standing an walking which resolves with laying down. Says it does not feel like a JIMÉNEZ, but assoc ear fullness. Denies N/V. Tolerating PO food and water. Voiding and flatus, no BM yet. normal lochia, abd pain when palpated. Pain controlled with ibuprofen, has not needed norco. PO intake tolerated: yes Flatus: yes Ambulation: yes Vital Signs (12 hours) Temp Pulse Resp BP 01/25/18 08:13 97.3 F L 94 14 103/58 L 01/25/18 05:00 98.1 F 93 16 114/52 L 01/25/18 01:25 98.2 F 84 16 115/69 Weight Weight 92.533 kg - Physical Examination General: NAD Cardiovascular: no m/r/g, RRR Respiratory: clear to auscultation bilaterally Abdominal: + bowel sounds, lochia, no distention Deviation from normal: moist and intact with osorio in place, no erythema Psychiatric: A&Ox3, normal affect Result Diagrams: 01/24/18 05:41 Additional Labs: Post Labs Blood Type A POSITIVE 01/23/18 10:20 Hep Bs Antigen Non-Reactive S/CO (NonReactive) 01/23/18 10:20 (1) Anemia Code(s): D64.9 - ANEMIA, UNSPECIFIED Status: Acute (2) delivery due to maternal disorder Code(s): EGV0337 - Status: Acute (3) Gestational diabetes Code(s): O24.419 - GESTATIONAL DIABETES MELLITUS IN , UNSP CONTROL Status: Chronic Qualifiers: Gestational diabetes mellitus control: oral hypoglycemic-controlled Trimester: third trimester Qualified Code(s): O24.415 - Gestational diabetes mellitus in , controlled by oral hypoglycemic drugs - Assessment/Plan 27 yo [id number] delivered via rLTCS 2/2 GDMA2 at 37.5wks 1. term rLTCS continue care 2. anemia did not get the 2 units pRBC that is documented, instead she got iron infusion reporting JIMÉNEZ type symptoms, but declining dizziness ddx includes epidural JIMÉNEZ consider rechecking H/H 3. A2GDM GTT at 6 weeks <Neto Sierra - Last Filed: 01/25/18 09:04> Vital Signs (12 hours) Temp Pulse Resp BP 01/25/18 08:13 97.3 F L 94 14 103/58 L 01/25/18 05:00 98.1 F 93 16 114/52 L 01/25/18 01:25 98.2 F 84 16 115/69 Weight Weight 92.533 kg Result Diagrams: 01/24/18 05:41 Additional Labs: Post Labs Blood Type A POSITIVE 01/23/18 10:20 Hep Bs Antigen Non-Reactive S/CO (NonReactive) 01/23/18 10:20 <Tatiana Gonzalez - Last Filed: 01/25/18 12:13> Attending Addendum - Attending Addendum Date/Time: 01/25/18 1205 I personally evaluated the patient and discussed the management with Dr. Sierra I agree with the History, Examination, Assessment and Plan documented above with any addition or exceptions noted below. 27 yo female s/p complicated RLTCS with RRS POD/PPD#2 Patient doing well. Complains of possible dull spinal headache which is dependant on positioning. Lochia appropriate. Incision healing well. [place] in place. + flatus. Voiding well. . 1. s/p complicated RLTCS with RRS: Routine care. Multiple adhesions. Pain controlled with NSAIDs. Incision healing well. Osorio to be removed POD 3 or 5. 2. PPH: Doing well. Asymptomatic. Fatigue improved after iron infusion. Continue oral replacement. 3. Uncontrolled A2 GDM: Needs 2 hour gtt at 6 wk pp Continue in patient monitoring. Possible d/c in AM. DezMD <Tatiana Gonzalez - Last Filed: 01/25/18 12:13>
[2018-01-25] MEDS: Lactated Ringer's 1,000 ML IV SCH (09:05)
[2018-01-25] MEDS: Prenatal Vitamin 1 TAB PO SCH (09:53)
[2018-01-25] MEDS: Docusate Calcium (SURFAK) 240 MG CAP PO SCH ×2 (09:53→21:49)
[2018-01-25] MEDS: Ferrous Sulfate 325 MG TAB PO SCH ×2 (09:53→17:13)
[2018-01-25] MEDS ORDERED: Ketorolac Tromethamine 30 MG/ML VIAL IVP SCH (10:00)
[2018-01-25] MEDS ORDERED: Loratadine 10 MG TAB PO SCH (12:15)
[2018-01-25] MEDS: HYDROcodone/Acetaminophen 5/325 mg Tablet PO PRN ×3 (12:51→21:47)
[2018-01-26 05:22] LABS: Hemoglobin 7.6 g/dL (12.0-16.0); Mean Corpuscular HGB CONC 31.3 g/dL (32.0-36.0); Mean Corpuscular Hemoglobin 26.1 pg (27.0-31.0); Mean Corpuscular Volume 83.4 fL (78.0-98.0); Mean Platelet Volume 8.6 fL (7.4-10.4); Platelet Count 294 thou/uL (130-400); RBC Distribution Width 15.8 % (11.5-14.5); White Blood Cell (WBC) Count 12.4 thou/uL (4.8-10.8)
[2018-01-26] MEDS: Ibuprofen 800 MG TAB PO SCH ×2 (05:50→14:15)
--- NOTE | 2018-01-26 08:04 | PDOC.PP ---
Post Progress Note Post Day #: 3 Subjective: Patient reports doing well overnight. Tolerating PO w/o N/V. Ambulating in hallway and did not have any of the head pressure of fullness she was describing yesterday morning. Abd mildly painful when ambulating, but improves and is improving. Period like bleeding. PO intake tolerated: yes Flatus: yes Ambulation: yes Vital Signs (12 hours) Temp Pulse Resp BP 01/26/18 05:00 98.6 F 113 H 19 120/65 Weight Weight 92.533 kg - Physical Examination General: NAD Cardiovascular: no m/r/g, RRR Respiratory: clear to auscultation bilaterally, non-labored breathing Abdominal: + bowel sounds, appropriately TTP Deviation from normal: c/s incision intact with no erythema Psychiatric: A&Ox3, normal affect Result Diagrams: 01/26/18 05:10 Additional Labs: Post Labs Blood Type A POSITIVE 01/23/18 10:20 Hep Bs Antigen Non-Reactive S/CO (NonReactive) 01/23/18 10:20 (1) Anemia Code(s): D64.9 - ANEMIA, UNSPECIFIED Status: Acute (2) delivery due to maternal disorder Code(s): [id number] - Status: Acute (3) Gestational diabetes Code(s): O24.419 - GESTATIONAL DIABETES MELLITUS IN , UNSP CONTROL Status: Chronic Qualifiers: Gestational diabetes mellitus control: oral hypoglycemic-controlled Trimester: third trimester Qualified Code(s): O24.415 - Gestational diabetes mellitus in , controlled by oral hypoglycemic drugs - Assessment/Plan 1. term rLTCS continue care pain controlled with ibuprofen likely d/c today 2. anemia with PPH s/p iron infusion Hemagram shows Hgb dropped from 7.9 to 7.6 patient reports no symptoms of anemia 3. headache JIMÉNEZ type symptoms resolved anesthesia contacted yesterday, blood patch was deferred to this morning after reevaluation for symptoms 3. A2GDM GTT at 6 weeks <Neto Sierra - Last Filed: 01/26/18 08:05> Vital Signs (12 hours) Temp Pulse Resp BP Pulse Ox 01/26/18 08:45 98.4 F 89 16 115/58 L 98 01/26/18 05:00 98.6 F 113 H 19 120/65 Weight Weight 92.533 kg Result Diagrams: 01/26/18 05:10 Additional Labs: Post Labs Blood Type A POSITIVE 01/23/18 10:20 Hep Bs Antigen Non-Reactive S/CO (NonReactive) 01/23/18 10:20 <Tatiana Gonzalez - Last Filed: 01/26/18 12:00> Attending Addendum - Attending Addendum Date/Time: 01/26/18 5430 I personally evaluated the patient and discussed the management with Dr. Sierra I agree with the History, Examination, Assessment and Plan documented above with any addition or exceptions noted below. 27 yo female s/p complicated RLTCS with RRS POD/PPD#3 Patient doing well. Complains of intermittent dull headache which is dependant on positioning but improved from yesterday. Lochia appropriate. Incision healing well. Osorio in place. + flatus. Voiding well. . 1. s/p complicated (multiple adhesions/PPH) RLTCS with RRS: Routine care. Pain controlled with NSAIDs. Incision healing well. Osorio to be removed today. Follow up with [facility] in 1 wk for incision check. 2. PPH: Doing well. Asymptomatic. Fatigue improved after iron infusion. Continue oral replacement. 3. Uncontrolled A2 GDM: Needs 2 hour gtt at 6 wk pp 4. Spinal headache: Mild. Does not need blood patch at this time. Ok for d/c to home. NSAIDs, caffeine and positioning discussed. Ok for d/c this AM. ABrayMD <Tatiana Gonzalez - Last Filed: 01/26/18 12:00>
[2018-01-26 09:16] VITALS: BP 115/58; TEMP 98.4
[2018-01-26] MEDS: Docusate Calcium (SURFAK) 240 MG CAP PO SCH (10:03)
[2018-01-26] MEDS: Prenatal Vitamin 1 TAB PO SCH (10:03)
[2018-01-26] MEDS: Ferrous Sulfate 325 MG TAB PO SCH (10:04)
[2018-01-26] MEDS: HYDROcodone/Acetaminophen 5/325 mg Tablet PO PRN (11:22)
== END 2018-01-26 15:20 | disposition home or self-care (01) | DRG 765 ==
LOC: L&D 09:50 → 3SW 01-24 02:55
PROVIDERS: ADMIT Family Medicine; ATTEND Family Medicine
PROC: 10D00Z1 Extraction of Products of Conception, Low, Open Approach (ICD-10-PCS; principal; 2018-01-23)
PROC: 0UB70ZZ Excision of Bilateral Fallopian Tubes, Open Approach (ICD-10-PCS; 2018-01-23)
DX: O24.429 Gestational diabetes mellitus in childbirth, unspecified control (principal); D62 Acute posthemorrhagic anemia; Z37.0 Single live birth; Z3A.37 37 weeks gestation of pregnancy; E11.65 Type 2 diabetes mellitus with hyperglycemia; O90.81 Anemia of the puerperium; Z80.41 Family history of malignant neoplasm of ovary
CPT/HCPCS: 36415; 36416; 51702; 80306; 85027; 85610; 85730; 86780; 86850; 86900; 86901; 87340; 88302; A4216; J0690; J1756; J1885; J2001; J2250; J2274; J2590; J3010; J3490; J7050